=== PATIENT | female | born 1985 | race Caucasian/White ===

== ENCOUNTER 2019-01-23 03:34 | Emergency (ER) | payer SELFPAY ==
[~2019-01-23] VITALS: Ht 167.6 cm; Wt 77.0 kg
[2019-01-23] MEDS ORDERED: KETOROLAC 60MG/2ML VIAL IM ONE (04:00)
[2019-01-23] MEDS ORDERED: LORAZEPAM 1MG TABLET PO ONE (04:00)
[2019-01-23 05:03] VITALS: BP 132/76
== END 2019-01-23 05:04 | disposition home or self-care (01) ==
LOC: ER 03:44
DX: R51 Headache (principal); F41.1 Generalized anxiety disorder; F43.0 Acute stress reaction
CPT/HCPCS: 96372; 99283; J1885